=== PATIENT | male | born 1940 | race Caucasian/White ===

== ENCOUNTER 2016-10-30 14:24 | Inpatient (IN) | payer MEDICARE, MEDICAID ==
--- NOTE | 2016-10-30 14:51 | ED Physician Chart ---
Chief Complaint/HPI - Patient Information Date Seen:: 10/30/16 Time Seen:: 14:41 Chief Complaint:: lethargy and htn History of Present Illness:: pt was sent from [place] for "lethargy" and htn. bp was 180/? ...was given clonidine ? how much prior to sent to ed. low saO2 noted in ed. pt says he has had a dry cough. thinks he had fever. pt is not a good/reliable historian although he rambles on constantly about vareous topics. limited data came over w this pt...we are trying to learn more. pt seems cogent here per staff. no known recent injury or acute illness. Historian:: Patient, EMS Review:: Transfer documents Reviewed Review of Systems - Review of Systems General/Constitutional: No fever, No chills, No weight loss, No weakness, No diaphoresis, No edema, No loss of appetite Skin: No skin lesions, No rash, No bruising Head: No headache, No light-headedness Eyes: No loss of vision, No pain, No diplopia ENT: No earache, No nasal drainage, No sore throat, No tinnitus Neck: No neck pain, No swelling, No thyromegaly, No stiffness, No mass noted Cardio Vascular: No chest pain, No palpitations, No PND, No orthopnea, No edema Pulmonary: SOB, No cough, No sputum, No wheezing GI: No nausea, No vomiting, No diarrhea, No pain, No melena, No hematochezia, No constipation, No hematemesis G/U: No dysuria, No frequency, No hematuria Musculoskeletal: No bone or joint pain, No back pain, No muscle pain Endocrine: No polyuria, No polydipsia Psychiatric: Prior psych history, No depression, No anxiety, No suicidal ideation Hematopoietic: No bruising, No lymphadenopathy Allergic/Immuno: No urticaria, No angioedema Neurological: No syncope, No focal symptoms, No weakness, No paresthesia, No headache, No seizure, No dizziness, Confusion, No vertigo Past Medical History - Past Medical History Past Medical History: HTN, DM, Other (polycystic kidneys) Social History: Care Facility Medication: Reviewed Physical Exam - Physical Examination General/Constitutional: Awake, Well-developed, well-nourished, Alert, No distress, GCS 15, Non-toxic appearing, Ambulatory Other Gen/Cons comments:: pt is not a good/reliable historian although he rambles on constantly about vareous topics. alert. protuberant abdomen//nontndr. lungs fairly clear but sao2 low pt speaks wo pressured speech. mild global edema. legs mild swelling not red. not tender. no madai sx Head: Atraumatic Eyes: Lids, conjuctiva normal, PERRL, EOMI Skin: Nl inspection, No rash, No skin lesions, No ecchymosis, Well hydrated, No lymphadenopathy ENMT: External ears, nose nl, Nasal exam nl, Lips, teeth, gums nl Neck: Nontender, Full ROM w/o pain, No JVD, No nuchal rigidity, No bruit, No mass, No stridor Respiratory: Nl effort/Exclusion, Clear to Auscultation, No Wheeze/Rhonchi/Rales Cardio Vascular: RRR, No murmur, gallop, rubs, NL S1 S2 GI: No tenderness/rebounding/guarding, No organomegaly, No hernia, Normal BS's, Nondistended, No mass/bruits, No McBurney tenderness : No CVA tenderness Extremities: No tenderness or effusion, Full ROM, normal strength in all extremities, No edema, Normal digits & nails Neuro/Psych: Alert/oriented, DTR's symmetric, Normal sensory exam, Normal motor strength, Judgement/insight normal, Mood normal, Normal gait, No focal deficits Misc: normal gait, Normal back, No paraspinal tenderness Labs/Radiology/EKG Results - Lab Results Results: Laboratory Tests 10/30/16 10/30/16 10/30/16 15:00 15:17 15:17 WBC 17.1 H RBC 5.15 Hgb 15.5 Hct 46.9 MCV 91.0 MCH 30.1 MCHC Differential 33.0 RDW 12.1 Plt Count 240 MPV 10.6 Neutrophils % 80.3 H Lymphocytes % 9.5 L Monocytes % 9.3 Eosinophils % 0.8 Basophils % 0.1 D-Dimer Sodium 132 L Potassium 4.0 Chloride 102 Carbon Dioxide 28.5 Anion Gap 5.5 L BUN 19 Creatinine 0.9 Est GFR ( Amer) TNP Est GFR (Non-Af Amer) TNP BUN/Creatinine Ratio 21.1 Glucose 278 H Calcium 9.0 Total Bilirubin 0.5 AST 12 L ALT 10 Alkaline Phosphatase 63 Troponin I Total Protein 7.1 Albumin 3.9 L Globulin 3.2 Albumin/Globulin Ratio 1.2 Urine Source CLEAN C Urine Color YELLOW Urine Clarity CLEAR Urine pH 6.5 Ur Specific [place] 1.025 Urine Protein >300 H Urine Glucose (UA) 500 H Urine Ketones NEGATIVE Urine Blood NEGATIVE Urine Nitrate NEGATIVE Urine Bilirubin NEGATIVE Urine Urobilinogen 0.2 Ur Leukocyte Esterase NEGATIVE Urine RBC NONE SEEN Urine WBC NONE SEEN Ur Epithelial Cells NONE SEEN Urine Bacteria NONE SEEN 10/30/16 10/30/16 15:17 15:17 WBC RBC Hgb Hct MCV MCH MCHC Differential RDW Plt Count MPV Neutrophils % Lymphocytes % Monocytes % Eosinophils % Basophils % D-Dimer 960 H Sodium Potassium Chloride Carbon Dioxide Anion Gap BUN Creatinine Est GFR ( Amer) Est GFR (Non-Af Amer) BUN/Creatinine Ratio Glucose Calcium Total Bilirubin AST ALT Alkaline Phosphatase Troponin I 0.01 Total Protein Albumin Globulin Albumin/Globulin Ratio Urine Source Urine Color Urine Clarity Urine pH Ur Specific [place] Urine Protein Urine Glucose (UA) Urine Ketones Urine Blood Urine Nitrate Urine Bilirubin Urine Urobilinogen Ur Leukocyte Esterase Urine RBC Urine WBC Ur Epithelial Cells Urine Bacteria - Radiology Results Results: cxr bibasilar inc markings atelectasis vs deveoping infiltrates... - EKG Interpretations EKG Time:: 15:20 Rhythm: nsr [place]: -88 Rate: 108 ED Septic Shock - . Is Septic Shock (SBP<90, OR Lactate>4 mmol\\L) present?: No Reassessment (Disposition) - Reassessment Reassessment:: case dw Dr Pitt...will admit .. - Diagnosis Diagnosis:: 1 pneumonia 2 htn 3 elevated d-dimer 4 mild chf exacerbation - Patient Disposition Admitted to:: Telemetry Condition at Disposition:: Improved
[2016-10-30] MEDS ORDERED: Albuterol/Ipratropium Neb 3 ML AERS HHN ONE ×2 (15:02→15:06)
[2016-10-30 15:40] LABS: ALB/GLOB RATIO 1.2 (1.0-1.8); ALKALINE PHOSPHATASE 63 U/L (34-104); ANION GAP 5.5 (7.0-16.0); BILIRUBIN,TOTAL 0.5 mg/dL (0.3-1.0); BUN - UREA NITROGEN 19 mg/dL (7-25); BUN/CREATININE RATIO 21.1; CARBON DIOXIDE 28.5 mEq/L (21.0-31.0); CHLORIDE 102 mEq/L (98-107); CREATININE - SERUM 0.9 mg/dL (0.7-1.3); GLUCOSE 278 mg/dL (70-105); SGOT 12 U/L (13-39); SGPT/ALT 10 U/L (7-52); SODIUM SERUM 132 mEq/L (136-145)
[2016-10-30 15:44] LABS: % BASOPHILS 0.1 % (0.0-2.0); % EOSINOPHILS 0.8 % (0.0-5.0); % LYMPHOCYTES 9.5 % (20.0-50.0); % MONOCYTES 9.3 % (2.0-10.0); % NEUTROPHILS 80.3 % (40.0-80.0); HEMATOCRIT 46.9 % (39.0-49.0); HEMOGLOBIN 15.5 gm/dL (12.6-17.4); MEAN CORPUSCULAR HEMOGLOBIN 30.1 pg (27.0-31.0); MEAN PLATELET VOLUME 10.6 fl; NEUTROPHILE ABSOLUTE 13.8 Th/cmm (1.8-8.0); PLATELET COUNT 240 Th/cmm (150-400); RED BLOOD COUNT 5.15 Mil/cmm (3.80-5.80); RED CELL DISTRIBUTION WIDTH 12.1 % (11.5-20.0); WHITE BLOOD COUNT 17.1 Th/cmm (4.8-10.8)
[2016-10-30 15:46] LABS: URINE BILIRUBIN NEGATIVE (NEGATIVE); URINE BLOOD NEGATIVE (NEGATIVE); URINE COLOR YELLOW; URINE GLUCOSE (UA) 500 mg/dL (NEGATIVE); URINE KETONE NEGATIVE (NEGATIVE); URINE PH 6.5; URINE PROTEIN >300 mg/dL (NEGATIVE); URINE UROBILINOGEN 0.2 E.U./dL (0.2 - 1.0)
[2016-10-30 15:48] LABS: URINE BACTERIA NONE SEEN /hpf (NONE SEEN); URINE EPITHELIAL CELLS NONE SEEN /lpf (FEW); URINE RBC NONE SEEN /hpf (0-5); URINE WBC NONE SEEN /hpf (0-5)
--- NOTE | 2016-10-30 16:03 | Diagnostic Imaging Report ---
CHEST X-RAY: AP view INDICATION: Shortness of breath COMPARISON: None FINDINGS: Low lung volumes are seen with increased bibasilar lung markings. There may be a small left effusion. Heart size normal. Atherosclerosis is noted. An azygos fissure is noted. Degenerative changes of the spine are noted. IMPRESSION: Low lung volumes with increased bibasilar lung markings which may due to atelectasis versus less likely developing infiltrates. Atherosclerotic vascular disease.
[2016-10-30] MEDS ORDERED: Levofloxacin 500mg/100mL 500 MG/100 ML BAG IV ONE ×2 (16:22→16:54)
--- NOTE | 2016-10-30 18:54 | Admit Criteria Form ---
Admit Criteria Forms - Admit Criteria Diagnosis: PNEUMONIA, COMMUNITY ACQUIRED Clinical Indications for Admission to Inpatient Care ( Place 'X' for any and all applicable criteria): Admission is indicated for ANY ONE of the following (1)(2)(3): [ ]I. Hypoxemia indicated by ANY ONE of the following: [ ]a) Oxygen saturation less than 90% while breathing room air [ ]b) PO2 less than 60 mm Hg (8.0 kPa) while breathing room air [ ]c) Chronic lung disease with significant deterioration from baseline oxygenation [ ]II. Appropriate diagnostic testing and treatment unavailable in outpatient or recovery facility (eg,testing or infection control measures unavailable(10) [X]III. Moderate-risk or high-risk category patients (Pneumonia Severity Index (PSI) class IV or V, or CURB-65 score of 3 or greater). [ ]IV. Outpatient treatment failure as indicated by ANY ONE of the following(9) : [ ]a) Failure to respond to antibiotic (eg, resistant organism) [ ]b) Clinically significant adverse effects from medication (eg, vomiting) [ ]c) Complications of pneumonia (eg, empyema, bacteremia) [ ]d) Significant worsening of comorbid cond necessitating inpatient care (eg, chronic heart failure) [ ]V. Intermediate-risk category patients (eg, PSI class III or CURB-65 score 2) who do not improve with initial therapy and observation. [ ]. Immunocompromised patients (eg, AIDS, chronic steroid use) at moderate or high risk based on clinical evaluation. [ ]VII. Complicated pleural effusions (eg, exudative, loculated) [ ]VIII.Hemodynamic instability [X] IX. Altered mental status that is severe or persistent. [ ]X. Dehydration that is severe or persistent. [ ]XI. Bacteremia [ ]XII. Respiratory finding (eg. tachypnea) that do not respond to outpatient or observation care treatment Extended stay beyond goal length of stay may be needed for (20) [ ]a) Unclear diagnosis [ ]b) Pleural disease [ ]c) Severe pneumonia or treatment failure (25 [ ]d) Respiratory failure (anticipate invasive or noninvasive ventilatory support) [ ]e) Abnormal serum electrolytes (serum Na concentration less than 135 mEq/L (mmol/L) (32)(33) [ ]f) Clinically significant comorbid illness (eg, heart failure, atrial fibrillation with rapid heart rate, alcohol withdrawal, renal insufficiency)(34)(35) [ ]g) Comorbid acute exacerbation of COPD(36) [ ]h) Concomitant diagnosis of malignancy that may be associated with malnutrition, immunologic impairment, or bronchial obstruction. [ ]i) Concomitant altered mental status [ ]j) Culture-identified Gram-negative or antibiotic-resistant organism (eg, Pseudomonas, methicillin-resistant Staphylococcus aureus)(30) [ ]k) Healthcare-associated pneumonia The original [facility] [employer] content created by [employer] has been revised. The portions of the content which have been revised are identified through the use of italic text or in bold, and [facility] has neither reviewed nor approved the modified material. All other unmodified content is copyright [facility] [facility]. Please see references footnoted in the original [facility] [employer] edition 2016 Admit Criteria Met?: Yes
[2016-10-30] MEDS ORDERED: HALOPERIDOL DECANOATE 25 MG IM SCH (22:47)
[2016-10-30] MEDS ORDERED: PROSTAT SUGAR FREE PO SCH (22:47)
[2016-10-30] MEDS ORDERED: IOHEXOL 350mg/mL 100mL Bottle IVP ONE (22:57)
[2016-10-30] MEDS ORDERED: Dextrose 50% 50 mL Abboject IVP PRN (23:13)
[2016-10-30] MEDS ORDERED: GLUCAGON HCl 1 MG KIT IM PRN (23:15)
[2016-10-30] MEDS: Albuterol/Ipratropium Neb 3 ML AERS HHN SCH (23:51)
[2016-10-30] MEDS: Insulin Detemir 100 units/mL 10mL Vial SUBQ SCH (23:51)
[2016-10-30] MEDS: INSULIN ASPART, RECOMBINANT 100 UNITS/ML SUBQ SCH ×2 (23:53→23:54)
[2016-10-30] MEDS: Azithromycin 500 MG in Sodium Chloride 0.9% 250 ML IV SCH (23:56)
[2016-10-31] MEDS ORDERED: cefTRIAXone 1 GM in Sodium Chloride 0.9% 50 ML IV SCH
[2016-10-31] MEDS: INSULIN ASPART, RECOMBINANT 100 UNITS/ML SUBQ SCH ×5 (06:39→22:29)
[2016-10-31] MEDS ORDERED: INSULIN HUMAN REGULAR 100 UNITS/ML UNIT SUBQ SCH (07:30)
[2016-10-31 07:32] LABS: HEMATOCRIT 46.5 % (39.0-49.0); HEMOGLOBIN 15.3 gm/dL (12.6-17.4); MEAN CELL VOLUME 89.9 fl (80-99); MEAN CORPUSCULAR HEMOGLOBIN 29.6 pg (27.0-31.0); MEAN PLATELET VOLUME 11.4 fl; PLATELET COUNT 250 Th/cmm (150-400); RED BLOOD COUNT 5.17 Mil/cmm (3.80-5.80); RED CELL DISTRIBUTION WIDTH 12.3 % (11.5-20.0)
[2016-10-31] MEDS: Albuterol/Ipratropium Neb 3 ML AERS HHN SCH ×4 (07:42→19:40)
[2016-10-31 07:49] LABS: WHITE BLOOD COUNT 24.5 Th/cmm (4.8-10.8)
[2016-10-31 08:00] LABS: ALB/GLOB RATIO 1.2 (1.0-1.8); ALKALINE PHOSPHATASE 62 U/L (34-104); ANION GAP 11.7 (7.0-16.0); BILIRUBIN,TOTAL 0.5 mg/dL (0.3-1.0); BUN - UREA NITROGEN 17 mg/dL (7-25); CALCIUM SERUM 8.9 mg/dL (8.6-10.3); CARBON DIOXIDE 30.3 mEq/L (21.0-31.0); CHLORIDE 101 mEq/L (98-107); CHOLESTEROL 127 mg/dL (<200); GLUCOSE 185 mg/dL (70-105); MAGNESIUM 2.1 mg/dL (1.9-2.7); SGOT 12 U/L (13-39); SGPT/ALT 9 U/L (7-52); SODIUM SERUM 139 mEq/L (136-145); TRIGLYCERIDES 85 mg/dL (<150)
[2016-10-31 08:13] LABS: BAND NEUTROPHILE 4 % (0-10); NEUTROPHILS 85 % (40-80); PLATELET ESTIMATE ADEQUATE (NORMAL); PLATELET MORPHOLOGY NORMAL (NORMAL); TOTAL CELLS COUNTED 100
[2016-10-31] MEDS ORDERED: Benztropine 1 mg/mL 2 mL Vial IM SCH (09:00)
[2016-10-31] MEDS ORDERED: VTE Chemical Prophylaxis Screen/Admission MC PRN (09:45)
--- NOTE | 2016-10-31 12:23 | History & Physical ---
CHIEF COMPLAINT: Lethargy, weakness, short of breath. HISTORY OF PRESENT ILLNESS: This is a 76-year-old gentleman who was transferred from [facility] with a few day history of lethargy and weakness. The patient is somewhat of a poor historian and not able to answer fully. He has a history of type 2 diabetes, hypertension, history of polycystic kidney disease, cardiac arrhythmia, history of CHF, dementia and schizophrenia as well as bipolar disorder. He also reports dry cough and also admits to tactile fever and chills. At the ER, his pertinent findings included elevated BP and leukocytosis of 17.1, D-dimer of 960. The patient has been admitted to telemetry for further management and care. PAST MEDICAL HISTORY: As noted above. PAST SURGICAL HISTORY: Denies. FAMILY HISTORY: Likely noncontributory. SOCIAL HISTORY: He lives at [facility]. He denies any tobacco, ETOH. He is under a conservator. ALLERGIES: NKDA. OUTPATIENT MEDICATIONS: Cogentin 1 mg b.i.d., Aricept 5 mg at bedtime, Colace 250 every day, Coreg 6.25 b.i.d. and Zyprexa 5 mg every day, Levemir 26 units at bedtime, NovoLog 5 units t.i.d. with meals. REVIEW OF SYSTEMS: CONSTITUTIONAL: As mentioned in the HPI, weak, tired, tactile fever, chills. CARDIOVASCULAR: No chest pain. No angina type symptomatology. PULMONARY: Shortness of breath noted with cough, mostly dry. GASTROINTESTINAL: No bowel habit changes. GENITOURINARY: No bladder habit changes. NEUROLOGIC: Denies any changes in vision or any headaches. PHYSICAL EXAMINATION: VITAL SIGNS: Temperature 98.0, pulse 97, respirations 18-20, BP 144/81, satting 92% on room air. GENERAL: Well-developed obese gentleman, not in acute distress, sitting up in a chair, speaking 2-3 words sentences. HEAD AND NECK: Normocephalic, atraumatic. CARDIAC: Regular rate with distant sounds. LUNGS: Decreased at the bases with no audible rhonchi or wheezing noted at this time. ABDOMEN: Soft, supple, nontender, nondistended, normoactive bowel sounds. EXTREMITIES: On lower extremity, there is no pedal edema. LABORATORY DATA: White count 24.5, H and H 15/46 with a platelet count of 250, 85% of lymphocytes. Chemistry shows glucose 185, otherwise within normal limits. LFTs also generally within normal limits. UA shows positive for glucose and ketones, negative for leukocytes or nitrite. DIAGNOSTICS: Chest x-ray shows low lung volumes with increased left basilar lung markings, which may be due to atelectasis versus developing infiltrates. There is also criteria for atherosclerotic vascular disease. EKG shows sinus tachycardia at a rate of 108. There are Q-waves in the inferior leads. IMPRESSION: 1. Bibasilar atelectasis versus pneumonia. 2. Leukocytosis. 3. Elevated D-dimer-r/o dvt/pe. 4. History of congestive heart failure. 5. Essential hypertension. 6. History of diabetes. 7. History of cardiac arrhythmias-unknown. 8. History of psych disorder, currently stable. PLAN: The patient has been admitted to [facility] for further management and care. The patient has been placed on IV antibiotics and pulmonary supportive care. He will be pancultured including sputum C and S and will be monitored with followup x-rays. A Pulmonary consult has also been asked for further management and care. Given his elevated D-dimer, a CT angiogram was ordered but the patient is currently refusing the study. A venous US is pending and a V/Q scan will be asked for. A 2D echo will also be done given his history of CAD and CHF and his BNP, which is normal and will be also monitored. He will be kept on his other medications as scheduled. JOB# [id number] CASEY
[2016-10-31] MEDS: Cefepime 2 GM in Sodium Chloride 0.9% 100 ML IV SCH ×2 (13:06→22:27)
[2016-10-31] MEDS: Budesonide 0.5 Mg/2 mL Ud HHN SCH (19:40)
[2016-10-31] MEDS: Insulin Detemir 100 units/mL 10mL Vial SUBQ SCH (22:28)
[2016-11-01] MEDS: Azithromycin 500 MG in Sodium Chloride 0.9% 250 ML IV SCH (01:43)
[2016-11-01] MEDS: INSULIN ASPART, RECOMBINANT 100 UNITS/ML SUBQ SCH ×3 (06:58→17:35)
[2016-11-01] MEDS: Albuterol/Ipratropium Neb 3 ML AERS HHN SCH ×4 (07:35→19:24)
[2016-11-01] MEDS: Budesonide 0.5 Mg/2 mL Ud HHN SCH ×2 (07:36→19:24)
--- NOTE | 2016-11-01 07:46 | Consultation ---
The patient of Dr. Pitt. Thank you very much, Dr. Pitt for this consultation. HISTORY OF PRESENT ILLNESS: This is a 76-year-old male who presented from nursing facility for cough, congestion, shortness of breath. The patient was telling me that someone was coughing at his face at the longterm and that is how he got sick and appears to be doing a little bit better, continues to have some cough and congestion. PAST MEDICAL HISTORY: Diabetes, hypertension, polycystic kidney disease, schizophrenia, bipolar, and dementia. SOCIAL HISTORY: This patient smoked, but quit many years ago, over 4 years ago. PHYSICAL EXAMINATION: GENERAL: Awake, alert, not in acute distress. VITAL SIGNS: His temperature is 98.0, pulse is 97, respirations 20, blood pressure 130/84, saturation 95%. HEENT: Atraumatic, normocephalic. Pupils reactive to light and accommodation. Ears, nose, throat normal. NECK: Supple. CHEST: There are decreased breath sounds bilaterally and decreased bilateral rhonchi. Minimum wheezing. HEART: Regular. ABDOMEN: Soft. EXTREMITIES: No edema. LABORATORY DATA: WBC is 24.5, hemoglobin 15.3. Sodium is 139, potassium 4.0, BUN 17, creatinine 1.0. Chest x-ray, bibasilar infiltrates with atelectasis. IMPRESSION: This is a 76-year-old male with: 1. Respiratory failure, hypoxemia. 2. Pneumonia. 3. Underlying airway disease with bronchospasm. PLAN: 1. IV antibiotics. 2. Nebulizer. 3. Add Pulmicort. 4. Follow up chest x-ray. Less likely pulmonary embolism, but will follow up on the V/Q scan as well. JOB# [id number]
--- NOTE | 2016-11-01 10:37 | Diagnostic Imaging Report ---
Nuclear medicine VQ scan HISTORY: Shortness of breath, rule out pulmonary embolus COMPARISON: Chest x-ray on 10/30/2016 Technique/procedure: For the ventilation portion of examination 40.1 mCi of technetium labeled DTPA was administered via aerosol and multiple scintigraphic images of the lungs were obtained. Note patient refused the rest of the procedure and perfusion images were not able to be obtained. IMPRESSION: Nondiagnostic exam as patient refused the perfusion portion of the procedure. When clinically feasible, repeat exam may be obtained.
[2016-11-01] MEDS: Cefepime 2 GM in Sodium Chloride 0.9% 100 ML IV SCH ×2 (12:00→23:00)
[2016-11-01 15:06] LABS: % BASOPHILS 0.9 % (0.0-2.0); % EOSINOPHILS 0.6 % (0.0-5.0); % LYMPHOCYTES 11.5 % (20.0-50.0); % MONOCYTES 6.6 % (2.0-10.0); % NEUTROPHILS 80.4 % (40.0-80.0); HEMATOCRIT 42.4 % (39.0-49.0); HEMOGLOBIN 14.3 gm/dL (12.6-17.4); MEAN CELL VOLUME 89.8 fl (80-99); MEAN CORPUSCULAR HEMOGLOBIN 30.3 pg (27.0-31.0); MEAN CORPUSCULAR HGB CONC 33.7 pg (28.0-36.0); MEAN PLATELET VOLUME 11.7 fl; NEUTROPHILE ABSOLUTE 10.9 Th/cmm (1.8-8.0); PLATELET COUNT 236 Th/cmm (150-400); RED BLOOD COUNT 4.72 Mil/cmm (3.80-5.80); RED CELL DISTRIBUTION WIDTH 12.5 % (11.5-20.0)
[2016-11-01 15:07] LABS: WHITE BLOOD COUNT 13.6 Th/cmm (4.8-10.8)
[2016-11-01 15:11] LABS: ANION GAP 5.2 (7.0-16.0); BUN - UREA NITROGEN 22 mg/dL (7-25); CALCIUM SERUM 8.5 mg/dL (8.6-10.3); CARBON DIOXIDE 33.9 mEq/L (21.0-31.0); CHLORIDE 101 mEq/L (98-107); GLUCOSE 262 mg/dL (70-105); POTASSIUM SERUM 4.1 mEq/L (3.5-5.1); SODIUM SERUM 136 mEq/L (136-145)
--- NOTE | 2016-11-01 16:58 | Cardiology ---
Patient of Dr. Pitt. M-MODE ECHOCARDIOGRAM: Mitral valve, anterior leaflet of the mitral valve shows normal excursion, EF velocity. Posterior mitral valve shows normal excursion. Left ventricle posterior wall shows increased thickness, normal excursion. Interventricular septum shows increased thickness, normal excursion, hypertrophy of the left ventricle, ejection fraction 60%. Left atrium normal. Aortic root shows normal dimension, normal excursion of aortic leaflets. CONCLUSION: Hypertrophy of the left ventricle, ejection fraction 60%. 2D ECHO: Long axis view showed normal sized left ventricle with hypertrophy of the left ventricle. Left atrium normal. Aortic root shows normal dimension, normal excursion of aortic leaflets. Short axis view of mitral valve normal. Short axis view of aortic valve normal. Apical four chamber view showed normal sized left ventricle with hypertrophy of the left ventricle. Left atrium normal. Right ventricular cavity, right atrium normal, no pericardial effusion. CONCLUSION: Hypertrophy of the left ventricle, ejection fraction 55%. Doppler study showed mild mitral regurgitation, tricuspid regurgitation, aortic regurgitation, prominent A wave consistent with full compliance of left ventricle. [facility]# [id number]
[2016-11-01 21:04] LABS: ABG SOURCE ARTERIAL; ALLEN TEST Positive; BE(B) 9.6 mmol/L (-3.0-3.0); FIO2 50; HCO3 39.5 mmol/L (20.0-26.0)
[2016-11-01 21:05] LABS: CRITICAL VALUES REPORTED BY SN
[2016-11-01 21:06] LABS: pH 7.28 (7.35-7.45)
[2016-11-01] MEDS ORDERED: Sodium Chloride 0.9% 1,000 ML IV ONE (22:11)
--- NOTE | 2016-11-01 22:15 | ED Physician Chart ---
Chief Complaint/HPI - Patient Information Date Seen:: 11/01/16 Time Seen:: 22:08 Chief Complaint:: respiratory failure History of Present Illness:: 76-year-old male with acute, severe, respiratory failure that started about 10 minutes prior to my arrival. Has associated hypercapnia. History limited as patient is unconscious and does not speak History provided by respiratory therapy and nursing staff Allergies:: Allergies Allergy/AdvReac Type Severity Reaction Status Date / Time No Known Allergies Allergy Verified 10/30/16 15:07 Historian:: Other (nursing staff and respiratory therapy) Review:: Nurse's Note Reviewed Review of Systems - Review of Systems Other: Complete system review otherwise unremarkable except as noted in HPI. Past Medical History - Past Medical History Obtainable: Yes (clinical condition of patient, unconscious and in respiratory failure) Family Medical History - Family Member Maternal History Unknown: Yes Physical Exam - Physical Examination Other:: INITIAL VITAL SIGNS: Reviewed by me GENERAL: Patient is lying in ICU bed, diaphoretic HEAD: Head is normocephalic. No evidence of trauma. No scalp or facial swelling EYES: No scleral icterus bilaterally ENT: Oropharynx is clear of exudate and erythema NECK: Supple. No meningismus. No masses. No evidence of trauma. No cervical spine bony step-offs or crepitus to palpation RESPIRATORY: Tachypneic with accessory muscle use, coarse breath sounds bilaterally CV: Tachycardic No murmurs, rubs, or gallops ABDOMEN: Soft, non-distended. No masses BACK: No ecchymoses. No evidence of trauma EXTREMITIES: Normal to inspection and palpation. No deformity SKIN: Warm and dry. No obvious rash. No jaundice NEUROLOGIC: Face is symmetric. Withdraws to pain in all extremities Labs/Radiology/EKG Results - Lab Results Results: Laboratory Tests 10/30/16 10/30/16 10/30/16 15:00 15:00 15:17 WBC 17.1 H RBC 5.15 Hgb 15.5 Hct 46.9 MCV 91.0 MCH 30.1 MCHC Differential 33.0 RDW 12.1 Plt Count 240 MPV 10.6 Neutrophils % 80.3 H Lymphocytes % 9.5 L Monocytes % 9.3 Eosinophils % 0.8 Basophils % 0.1 D-Dimer Sodium Potassium Chloride Carbon Dioxide Anion Gap BUN Creatinine Est GFR ( Amer) Est GFR (Non-Af Amer) BUN/Creatinine Ratio Glucose POC Glucose 263 H Hemoglobin A1c % Whole Bld Lactic Acid Calcium Total Bilirubin AST ALT Alkaline Phosphatase Troponin I B-Natriuretic Peptide Total Protein Albumin Globulin Albumin/Globulin Ratio Urine Source CLEAN C Urine Color YELLOW Urine Clarity CLEAR Urine pH 6.5 Ur Specific [place] 1.025 Urine Protein >300 H Urine Glucose (UA) 500 H Urine Ketones NEGATIVE Urine Blood NEGATIVE Urine Nitrate NEGATIVE Urine Bilirubin NEGATIVE Urine Urobilinogen 0.2 Ur Leukocyte Esterase NEGATIVE Urine RBC NONE SEEN Urine WBC NONE SEEN Ur Epithelial Cells NONE SEEN Urine Bacteria NONE SEEN 10/30/16 10/30/16 10/30/16 15:17 15:17 15:17 WBC RBC Hgb Hct MCV MCH MCHC Differential RDW Plt Count MPV Neutrophils % Lymphocytes % Monocytes % Eosinophils % Basophils % D-Dimer 960 H Sodium 132 L Potassium 4.0 Chloride 102 Carbon Dioxide 28.5 Anion Gap 5.5 L BUN 19 Creatinine 0.9 Est GFR ( Amer) TNP Est GFR (Non-Af Amer) TNP BUN/Creatinine Ratio 21.1 Glucose 278 H POC Glucose Hemoglobin A1c % Whole Bld Lactic Acid Calcium 9.0 Total Bilirubin 0.5 AST 12 L ALT 10 Alkaline Phosphatase 63 Troponin I 0.01 B-Natriuretic Peptide Total Protein 7.1 Albumin 3.9 L Globulin 3.2 Albumin/Globulin Ratio 1.2 Urine Source Urine Color Urine Clarity Urine pH Ur Specific [place] Urine Protein Urine Glucose (UA) Urine Ketones Urine Blood Urine Nitrate Urine Bilirubin Urine Urobilinogen Ur Leukocyte Esterase Urine RBC Urine WBC Ur Epithelial Cells Urine Bacteria 10/30/16 10/30/16 10/30/16 15:17 15:17 15:17 WBC RBC Hgb Hct MCV MCH MCHC Differential RDW Plt Count MPV Neutrophils % Lymphocytes % Monocytes % Eosinophils % Basophils % D-Dimer Sodium Potassium Chloride Carbon Dioxide Anion Gap BUN Creatinine Est GFR ( Amer) Est GFR (Non-Af Amer) BUN/Creatinine Ratio Glucose POC Glucose Hemoglobin A1c % 8.6 H Whole Bld Lactic Acid 0.83 Calcium Total Bilirubin AST ALT Alkaline Phosphatase Troponin I B-Natriuretic Peptide 37.1 Total Protein Albumin Globulin Albumin/Globulin Ratio Urine Source Urine Color Urine Clarity Urine pH Ur Specific [place] Urine Protein Urine Glucose (UA) Urine Ketones Urine Blood Urine Nitrate Urine Bilirubin Urine Urobilinogen Ur Leukocyte Esterase Urine RBC Urine WBC Ur Epithelial Cells Urine Bacteria Assessment - Assessment General Assessment: Intubation Endotracheal Intubation by me, Dr. Radha Salazar M.D.: Pre assessment performed. See preceding note for details. Pre-oxygenation performed with 100% oxygen RSI: Performed w/o complication or hypoxic events. Medications as ordered. Blade: MAC 4 ET Tube: 8 cm Depth: 22 cm at the lip Compl: No hypoxic events or bradycardia Intubation confirmed by colorimetric CO2, equal breath sounds, quiet over the stomach. Chest X-ray 1V Interpreted by me: 2 cm above the meredith ET tube. Normal soft tissue, No pneumothorax. ED Septic Shock - . Is Septic Shock (SBP<90, OR Lactate>4 mmol\L) present?: No Reassessment (Disposition) - Reassessment Reassessment:: Patient was intubated. In respiratory failure. Ordered propofol drip. Saline bolus. NG/OG-tube placement. ABG ordered 1 hour after intubation. Initial vent setting AC 24, [id number], peep 5. Nursing to inform Hospital physician. Reassessment Condition:: Unchanged, Improved - Diagnosis Diagnosis:: Respiratory failure - Aftercare/Follow up Instructions Aftercare/Follow-Up Instructions:: Counseled pt regarding lab results/diagnosis & need follow up, Refer to Discharge Instructions - Patient Disposition Discharge/Transfer:: Acute Care w/in this hosp Admitted to:: ICU Condition at Disposition:: Stable ED Discharge Plan - Patient Disposition Admit/Discharge/Transfer: Acute Care w/in this hosp Condition at Disposition: Stable
[2016-11-01 22:45] LABS: ABG SOURCE ARTERIAL; ALLEN TEST Positive; BE(B) 8.2 mmol/L (-3.0-3.0); HCO3 33.9 mmol/L (20.0-26.0); pH 7.43 (7.35-7.45)
[2016-11-01 22:46] LABS: CRITICAL VALUES REPORTED BY SN; FIO2 100; MECH RATE 24; MECH VT 650
[2016-11-02] MEDS ORDERED: Sodium Chloride 0.9% 1,000 ML IV ONE ×2 (00:10→00:16)
[2016-11-02] MEDS ORDERED: Norepinephrine 4 mg/4mL Vial IV ONE (00:46)
[2016-11-02] MEDS: Azithromycin 500 MG in Sodium Chloride 0.9% 250 ML IV SCH ×2 (01:38→23:40)
[2016-11-02] MEDS: INSULIN ASPART, RECOMBINANT 100 UNITS/ML SUBQ SCH ×5 (02:59→21:16)
[2016-11-02 05:06] LABS: % BASOPHILS 0.2 % (0.0-2.0); % EOSINOPHILS 0.3 % (0.0-5.0); % LYMPHOCYTES 18.6 % (20.0-50.0); % MONOCYTES 8.3 % (2.0-10.0); % NEUTROPHILS 72.6 % (40.0-80.0); HEMATOCRIT 43.8 % (39.0-49.0); HEMOGLOBIN 14.7 gm/dL (12.6-17.4); MEAN CELL VOLUME 89.3 fl (80-99); MEAN CORPUSCULAR HEMOGLOBIN 30.1 pg (27.0-31.0); MEAN CORPUSCULAR HGB CONC 33.7 pg (28.0-36.0); MEAN PLATELET VOLUME 12.6 fl; PLATELET COUNT 269 Th/cmm (150-400); RED CELL DISTRIBUTION WIDTH 12.4 % (11.5-20.0)
[2016-11-02 05:18] LABS: WHITE BLOOD COUNT 17.9 Th/cmm (4.8-10.8)
[2016-11-02 05:25] LABS: ANION GAP 10.5 (7.0-16.0); BUN - UREA NITROGEN 27 mg/dL (7-25); BUN/CREATININE RATIO 20.8; CALCIUM SERUM 8.7 mg/dL (8.6-10.3); CARBON DIOXIDE 29.5 mEq/L (21.0-31.0); CHLORIDE 101 mEq/L (98-107); CREATININE - SERUM 1.3 mg/dL (0.7-1.3); GLUCOSE 262 mg/dL (70-105); SODIUM SERUM 137 mEq/L (136-145)
[2016-11-02] MEDS: Albuterol/Ipratropium Neb 3 ML AERS HHN SCH ×4 (07:24→19:13)
[2016-11-02] MEDS: Budesonide 0.5 Mg/2 mL Ud HHN SCH ×2 (07:24→19:13)
[2016-11-02] MEDS: Insulin Detemir 100 units/mL 10mL Vial SUBQ SCH ×2 (07:52→21:12)
[2016-11-02] MEDS ORDERED: Chlorhexidine Gluconate 0.12% 15mL Mouthwash MM SCH (08:00)
[2016-11-02] MEDS ORDERED: Probiotic Screen MC PRN (09:17)
[2016-11-02] MEDS: Cefepime 2 GM in Sodium Chloride 0.9% 100 ML IV SCH ×2 (10:24→22:11)
--- NOTE | 2016-11-02 10:24 | Diagnostic Imaging Report ---
Portable chest x-ray HISTORY: Pneumonia Compared to prior exam of November 01, 2016, the heart remains enlarged. There appears to be increased density in left lower hemithorax consistent with a pleural effusion. Underlying pneumonia or atelectasis cannot be excluded. An endotracheal tube tip is approximate 4.0 cm above the meredith. A nasogastric tube appears to extend below the diaphragm into the region of the stomach. IMPRESSION: 1. Density left lower hemithorax suggesting a small effusion. Underlying pneumonia and/or atelectasis cannot be excluded. 2. Endotracheal tube and nasogastric tube placements as noted above 3. Cardiomegaly
[2016-11-02 15:57] LABS: ABG SOURCE Arterial; ALLEN TEST PASS; BE(B) 12.2 mmol/L (-3.0-3.0); HCO3 34.2 mmol/L (20.0-26.0); pH 7.61 (7.35-7.45)
[2016-11-02 15:58] LABS: CRITICAL VALUES REPORTED BY PW; FIO2 80; MECH RATE 24; MECH VT 650
[2016-11-02 18:07] LABS: INR 1.12 (0.5-1.4); PROTHROMBIN TIME (TEST) 11.2 SECONDS (9.5-11.5)
[2016-11-02] MEDS: Chlorhexidine Gluconate 0.12% 15mL Mouthwash MM SCH (19:58)
[2016-11-02] MEDS ORDERED: Diltiazem 5 mg/mL 5mL Vial IVP ONE (23:30)
[2016-11-03] MEDS: Diltiazem 5 mg/mL 5mL Vial IVP PRN (02:23)
[2016-11-03 04:49] LABS: RED BLOOD COUNT 4.73 Mil/cmm (3.80-5.80)
[2016-11-03 05:15] LABS: % BASOPHILS 0.2 % (0.0-2.0); % EOSINOPHILS 1.2 % (0.0-5.0); % LYMPHOCYTES 15.6 % (20.0-50.0); % MONOCYTES 13.4 % (2.0-10.0); % NEUTROPHILS 69.6 % (40.0-80.0); HEMATOCRIT 42.3 % (39.0-49.0); MEAN CELL VOLUME 89.5 fl (80-99); MEAN CORPUSCULAR HEMOGLOBIN 29.5 pg (27.0-31.0); MEAN PLATELET VOLUME 11.7 fl; NEUTROPHILE ABSOLUTE 9.8 Th/cmm (1.8-8.0); PLATELET COUNT 220 Th/cmm (150-400); RED CELL DISTRIBUTION WIDTH 12.7 % (11.5-20.0)
[2016-11-03 05:26] LABS: ANION GAP 6.4 (7.0-16.0); BUN - UREA NITROGEN 30 mg/dL (7-25); CALCIUM SERUM 8.2 mg/dL (8.6-10.3); CHLORIDE 106 mEq/L (98-107); CREATININE - SERUM 1.5 mg/dL (0.7-1.3); GLUCOSE 247 mg/dL (70-105); POTASSIUM SERUM 3.4 mEq/L (3.5-5.1); SODIUM SERUM 140 mEq/L (136-145)
[2016-11-03 05:28] LABS: WHITE BLOOD COUNT 14.1 Th/cmm (4.8-10.8)
[2016-11-03] MEDS: INSULIN ASPART, RECOMBINANT 100 UNITS/ML SUBQ SCH ×4 (06:43→20:59)
[2016-11-03] MEDS: Budesonide 0.5 Mg/2 mL Ud HHN SCH ×2 (07:41→18:31)
[2016-11-03] MEDS: Albuterol/Ipratropium Neb 3 ML AERS HHN SCH ×4 (07:41→18:31)
[2016-11-03] MEDS: Lactobacillus Rhamnosus 10 Billion CFU Capsule PO SCH (08:13)
[2016-11-03] MEDS ORDERED: Potassium Chloride Elixir 20 mEq /15 mL UDC GT ONE (09:11)
[2016-11-03] MEDS: Chlorhexidine Gluconate 0.12% 15mL Mouthwash MM SCH ×2 (09:12→20:38)
[2016-11-03 09:37] LABS: ABG SOURCE Arterial; ALLEN TEST PASS; BE(B) 7.9 mmol/L (-3.0-3.0); HCO3 33.3 mmol/L (20.0-26.0); pH 7.44 (7.35-7.45)
[2016-11-03 09:38] LABS: CRITICAL VALUES REPORTED BY PW; FIO2 40; MECH RATE 14; MECH VT 550
--- NOTE | 2016-11-03 10:13 | Diagnostic Imaging Report ---
Portable chest x-ray HISTORY: Shortness of breath, endotracheal tube placement Compared with a prior exam of October 30, 2016, an endotracheal tube has been inserted. The tip is approximately 5.0 cm above the meredith. Somewhat linear density noted in the right lung base that may be associated with scarring or subsegmental atelectasis. Faint density also noted in the right perihilar region. Ammonia cannot be definitely excluded. IMPRESSION: 1. Endotracheal tube tip approximately 5.0 cm above the meredith 2. Stable linear density right lung base that may be associated with scarring or subsegmental atelectasis 3. Faint density in the right perihilar region. Pneumonia cannot be definitely excluded. Clinical correlation needed.
[2016-11-03] MEDS: Cefepime 2 GM in Sodium Chloride 0.9% 100 ML IV SCH ×2 (10:56→22:47)
[2016-11-03] MEDS ORDERED: Sodium Chloride 0.9% 1,000 ML IV SCH (15:45)
[2016-11-03] MEDS: Insulin Detemir 100 units/mL 10mL Vial SUBQ SCH (21:40)
--- NOTE | 2016-11-04 05:07 | Consultation ---
The patient of Dr. Pitt. HISTORY AND PHYSICAL: This 76-year-old male patient who was admitted to [facility] with lethargy and weakness. During hospital stay, the patient had respiratory failure. The patient is intubated and transferred to ICU. The patient also is hypotensive on Levophed. PAST MEDICAL HISTORY: Respiratory failure, COPD, diabetes, hypertension, polycystic kidney, congestive heart failure, dementia, schizophrenia, and bipolar. FAMILY HISTORY: Unremarkable. SOCIAL HISTORY: No history of smoking or alcohol abuse. ALLERGIES: No known allergies. PHYSICAL EXAMINATION: VITAL SIGNS: Blood pressure 100/70, on Levophed, pulse 100, and respirations, on ventilator. HEAD: Head is normocephalic. No lumps or bumps. EYES: Pupils are equal and reactive to light. Fundi show AV nicking, sclerae white, and conjunctivae pink. NECK: Carotid 2+. Normal upstroke. JVD 10 cm above the sternal angle. Thyroid not palpable. Lymph nodes not palpable. CHEST: Shows increased AP diameter. No kyphosis or scoliosis. LUNGS: Bilateral rales. Decreased breath sounds at both the bases. HEART: PMI fifth intercostal space with lateral to midclavicular line. S1, S2, S3, S4, systolic murmur, grade 2/6, lower left sternal border without radiation. ABDOMEN: Soft. Liver and spleen not palpable. No organomegaly. Bowel sounds active. NEUROLOGIC: Unremarkable. EXTREMITIES: Peripheral pulses 2+. No pedal edema. CLINICAL IMPRESSION: Acute respiratory failure, on ventilator, non-ST elevation myocardial infarction, congestive heart failure, diastolic dysfunction, hypertension, diabetes mellitus type 2, polycystic kidney, dementia, schizophrenia, and bipolar. PLAN: We will continue the patient on management of the ventilator. Continue the patient on Levophed. We will also get an echocardiogram to evaluate for left ventricular function. The patient has hypokalemia, will have potassium supplement and CKD stage II. JOB# [id number]
[2016-11-04 05:18] LABS: HEMOGLOBIN 14.8 gm/dL (12.6-17.4); MEAN CELL VOLUME 89.8 fl (80-99)
[2016-11-04 05:22] LABS: % EOSINOPHILS 2.5 % (0.0-5.0); % LYMPHOCYTES 9.6 % (20.0-50.0); % MONOCYTES 11.1 % (2.0-10.0); % NEUTROPHILS 76.8 % (40.0-80.0); HEMATOCRIT 43.4 % (39.0-49.0); MEAN CORPUSCULAR HEMOGLOBIN 30.6 pg (27.0-31.0); MEAN CORPUSCULAR HGB CONC 34.1 pg (28.0-36.0); MEAN PLATELET VOLUME 11.9 fl; NEUTROPHILE ABSOLUTE 9.9 Th/cmm (1.8-8.0); RED BLOOD COUNT 4.83 Mil/cmm (3.80-5.80); RED CELL DISTRIBUTION WIDTH 12.9 % (11.5-20.0); WHITE BLOOD COUNT 12.8 Th/cmm (4.8-10.8)
[2016-11-04 05:29] LABS: PLATELET COUNT 151 Th/cmm (150-400)
[2016-11-04 05:36] LABS: ALB/GLOB RATIO 0.9 (1.0-1.8); ALKALINE PHOSPHATASE 57 U/L (34-104); ANION GAP 5.6 (7.0-16.0); BILIRUBIN,TOTAL 0.4 mg/dL (0.3-1.0); BUN - UREA NITROGEN 21 mg/dL (7-25); BUN/CREATININE RATIO 19.1; CALCIUM SERUM 8.2 mg/dL (8.6-10.3); CARBON DIOXIDE 30.9 mEq/L (21.0-31.0); CHLORIDE 109 mEq/L (98-107); CREATININE - SERUM 1.1 mg/dL (0.7-1.3); GLUCOSE 132 mg/dL (70-105); MAGNESIUM 2.1 mg/dL (1.9-2.7); POTASSIUM SERUM 3.5 mEq/L (3.5-5.1); SGOT 14 U/L (13-39); SGPT/ALT 17 U/L (7-52); SODIUM SERUM 142 mEq/L (136-145)
[2016-11-04] MEDS: INSULIN ASPART, RECOMBINANT 100 UNITS/ML SUBQ SCH ×4 (07:11→21:15)
[2016-11-04] MEDS: Albuterol/Ipratropium Neb 3 ML AERS HHN SCH ×5 (07:45→23:01)
[2016-11-04] MEDS: Budesonide 0.5 Mg/2 mL Ud HHN SCH ×2 (07:45→19:24)
[2016-11-04] MEDS: Chlorhexidine Gluconate 0.12% 15mL Mouthwash MM SCH ×2 (08:23→20:30)
[2016-11-04] MEDS: Lactobacillus Rhamnosus 10 Billion CFU Capsule PO SCH (08:23)
--- NOTE | 2016-11-04 11:11 | Diagnostic Imaging Report ---
Portable chest x-ray HISTORY: Shortness of breath Compared with the prior exam of November 02, 2016, there is improved visualization of the left lower lobe with no definite focal pulmonary processes. An endotracheal tube tip is approximately 3.0 cm above the meredith. IMPRESSION: 1. Improved visualization of the left lower lobe with no definite focal processes.
--- NOTE | 2016-11-04 11:19 | Diagnostic Imaging Report ---
Portable chest x-ray HISTORY: Shortness of breath Compared with the prior exam of November 03, 2016, faint density seen in the right perihilar region. Pneumonia cannot be definitely excluded. Clinical correlation is needed. An endotracheal tube tip is approximately 2.5 cm above the meredith. IMPRESSION: 1. No change in pulmonary status. Faint density seen in the right perihilar region. Pneumonia cannot be excluded. Clinical correlation is needed.
--- NOTE | 2016-11-04 11:29 | Diagnostic Imaging Report ---
Portable chest x-ray HISTORY: Shortness of breath, vascular catheter placement Compared to prior exam performed earlier in the day (0851 hours), a right-sided vascular catheters been inserted. The tip is in the superior vena cava. The heart remains enlarged. There is questionable faint infiltrate in the right lower perihilar region. Pneumonia cannot be excluded. Clinical correlation and follow-up recommended. IMPRESSION: 1. New vascular catheter with tip in the region of the superior vena cava 2. Questionable faint infiltrate in the lower right perihilar region. Early pneumonia cannot be excluded. Clinical correlation is needed.
[2016-11-04] MEDS: D5-0.9%NS 1,000 ML IV SCH (13:36)
[2016-11-04] MEDS: Cefepime 2 GM in Sodium Chloride 0.9% 100 ML IV SCH ×2 (16:24→22:42)
[2016-11-04] MEDS: Morphine Sulfate 2 mg/mL 1mL Syr IVP PRN (16:36)
[2016-11-04] MEDS: Insulin Detemir 100 units/mL 10mL Vial SUBQ SCH (21:15)
[2016-11-04] MEDS: Azithromycin 500 MG in Sodium Chloride 0.9% 250 ML IV SCH ×2 (23:51)
[2016-11-05] MEDS: Diltiazem 5 mg/mL 5mL Vial IVP PRN (00:38)
[2016-11-05] MEDS: Morphine Sulfate 2 mg/mL 1mL Syr IVP PRN (03:17)
[2016-11-05 05:19] LABS: RED CELL DISTRIBUTION WIDTH 12.8 % (11.5-20.0)
[2016-11-05 05:31] LABS: % EOSINOPHILS 1.2 % (0.0-5.0); % LYMPHOCYTES 12.4 % (20.0-50.0); % MONOCYTES 10.4 % (2.0-10.0); MEAN CELL VOLUME 90.2 fl (80-99); MEAN CORPUSCULAR HEMOGLOBIN 30.1 pg (27.0-31.0); MEAN CORPUSCULAR HGB CONC 33.3 pg (28.0-36.0); MEAN PLATELET VOLUME 11.8 fl; NEUTROPHILE ABSOLUTE 8.6 Th/cmm (1.8-8.0); PLATELET COUNT 146 Th/cmm (150-400); WHITE BLOOD COUNT 11.6 Th/cmm (4.8-10.8)
[2016-11-05 05:32] LABS: HEMOGLOBIN 12.6 gm/dL (12.6-17.4)
[2016-11-05 05:33] LABS: HEMATOCRIT 37.9 % (39.0-49.0)
[2016-11-05 05:44] LABS: ANION GAP 5.2 (7.0-16.0); BUN - UREA NITROGEN 18 mg/dL (7-25); BUN/CREATININE RATIO 16.4; CALCIUM SERUM 7.8 mg/dL (8.6-10.3); CARBON DIOXIDE 28.4 mEq/L (21.0-31.0); CHLORIDE 112 mEq/L (98-107); CREATININE - SERUM 1.1 mg/dL (0.7-1.3); GLUCOSE 240 mg/dL (70-105); POTASSIUM SERUM 3.6 mEq/L (3.5-5.1); SODIUM SERUM 142 mEq/L (136-145)
[2016-11-05] MEDS: INSULIN ASPART, RECOMBINANT 100 UNITS/ML SUBQ SCH ×4 (06:56→21:51)
[2016-11-05] MEDS: D5-0.9%NS 1,000 ML IV SCH ×2 (06:59→19:43)
[2016-11-05] MEDS: Albuterol/Ipratropium Neb 3 ML AERS HHN SCH ×4 (07:57→19:09)
[2016-11-05] MEDS: Budesonide 0.5 Mg/2 mL Ud HHN SCH ×2 (07:57→19:09)
[2016-11-05 10:08] LABS: ABG SOURCE Arterial; ALLEN TEST Positive; BE(B) 6.6 mmol/L (-3.0-3.0); HCO3 31.3 mmol/L (20.0-26.0); pH 7.46 (7.35-7.45)
[2016-11-05 10:09] LABS: FIO2 40; MECH RATE 12; MECH VT 550
[2016-11-05] MEDS: Benztropine 1 MG TAB PO SCH (10:37)
[2016-11-05] MEDS: Lactobacillus Rhamnosus 10 Billion CFU Capsule PO SCH (10:37)
[2016-11-05] MEDS: Chlorhexidine Gluconate 0.12% 15mL Mouthwash MM SCH ×2 (10:37→21:50)
[2016-11-05] MEDS: Cefepime 2 GM in Sodium Chloride 0.9% 100 ML IV SCH ×2 (11:00→23:04)
[2016-11-05] MEDS: Insulin Detemir 100 units/mL 10mL Vial SUBQ SCH (21:53)
[2016-11-06] MEDS: Azithromycin 500 MG in Sodium Chloride 0.9% 250 ML IV SCH ×2 (00:21→23:58)
[2016-11-06 05:03] LABS: % BASOPHILS 0.5 % (0.0-2.0); % EOSINOPHILS 2.5 % (0.0-5.0); % LYMPHOCYTES 14.6 % (20.0-50.0); % NEUTROPHILS 70.4 % (40.0-80.0); HEMATOCRIT 35.3 % (39.0-49.0); HEMOGLOBIN 12.1 gm/dL (12.6-17.4); MEAN CELL VOLUME 89.7 fl (80-99); MEAN CORPUSCULAR HEMOGLOBIN 30.7 pg (27.0-31.0); MEAN CORPUSCULAR HGB CONC 34.3 pg (28.0-36.0); MEAN PLATELET VOLUME 11.4 fl; NEUTROPHILE ABSOLUTE 7.4 Th/cmm (1.8-8.0); PLATELET COUNT 164 Th/cmm (150-400); RED BLOOD COUNT 3.93 Mil/cmm (3.80-5.80); RED CELL DISTRIBUTION WIDTH 12.6 % (11.5-20.0); WHITE BLOOD COUNT 10.7 Th/cmm (4.8-10.8)
[2016-11-06 05:18] LABS: ANION GAP 4.2 (7.0-16.0); BUN - UREA NITROGEN 24 mg/dL (7-25); CALCIUM SERUM 8.1 mg/dL (8.6-10.3); CARBON DIOXIDE 30.3 mEq/L (21.0-31.0); CHLORIDE 113 mEq/L (98-107); GLUCOSE 197 mg/dL (70-105); MAGNESIUM 2.1 mg/dL (1.9-2.7); POTASSIUM SERUM 3.5 mEq/L (3.5-5.1); SODIUM SERUM 144 mEq/L (136-145)
[2016-11-06] MEDS: INSULIN ASPART, RECOMBINANT 100 UNITS/ML SUBQ SCH ×4 (06:35→21:12)
[2016-11-06] MEDS: Albuterol/Ipratropium Neb 3 ML AERS HHN SCH ×4 (07:19→19:28)
[2016-11-06] MEDS: Budesonide 0.5 Mg/2 mL Ud HHN SCH ×2 (07:19→19:28)
[2016-11-06] MEDS: Lactobacillus Rhamnosus 10 Billion CFU Capsule PO SCH (08:13)
[2016-11-06] MEDS: Benztropine 1 MG TAB PO SCH (08:13)
[2016-11-06] MEDS: Chlorhexidine Gluconate 0.12% 15mL Mouthwash MM SCH ×2 (08:40→20:54)
--- NOTE | 2016-11-06 09:19 | Diagnostic Imaging Report ---
CHEST X-RAY: AP view INDICATION: Shortness of breath COMPARISON: 11/04/2016 FINDINGS: Support devices remain stable accounting for differences in positioning. Improving and decreased bibasal densities are noted. There may be mild congestive changes. Heart size is normal. IMPRESSION: Improving bibasal densities which may be due to improving infiltrates. Probable mild degree of congestion.
[2016-11-06] MEDS: Cefepime 2 GM in Sodium Chloride 0.9% 100 ML IV SCH ×2 (10:39→23:00)
[2016-11-06] MEDS: D5-0.9%NS 1,000 ML IV SCH (10:41)
[2016-11-06] MEDS: Diltiazem 5 mg/mL 5mL Vial IVP PRN (15:12)
[2016-11-06] MEDS: Insulin Detemir 100 units/mL 10mL Vial SUBQ SCH (21:14)
[2016-11-07] MEDS: D5-0.9%NS 1,000 ML IV SCH (02:12)
[2016-11-07 05:21] LABS: % BASOPHILS 0.1 % (0.0-2.0); % EOSINOPHILS 3.8 % (0.0-5.0); % LYMPHOCYTES 15.4 % (20.0-50.0); % MONOCYTES 11.2 % (2.0-10.0); % NEUTROPHILS 69.5 % (40.0-80.0); HEMATOCRIT 36.7 % (39.0-49.0); HEMOGLOBIN 12.3 gm/dL (12.6-17.4); MEAN CELL VOLUME 90.4 fl (80-99); MEAN CORPUSCULAR HEMOGLOBIN 30.2 pg (27.0-31.0); MEAN CORPUSCULAR HGB CONC 33.5 pg (28.0-36.0); MEAN PLATELET VOLUME 10.6 fl; NEUTROPHILE ABSOLUTE 7.8 Th/cmm (1.8-8.0); PLATELET COUNT 180 Th/cmm (150-400); RED BLOOD COUNT 4.06 Mil/cmm (3.80-5.80); RED CELL DISTRIBUTION WIDTH 13.2 % (11.5-20.0); WHITE BLOOD COUNT 11.1 Th/cmm (4.8-10.8)
[2016-11-07 05:45] LABS: ANION GAP 6.5 (7.0-16.0); BUN - UREA NITROGEN 22 mg/dL (7-25); BUN/CREATININE RATIO 27.5; CALCIUM SERUM 8.3 mg/dL (8.6-10.3); CARBON DIOXIDE 30.8 mEq/L (21.0-31.0); CHLORIDE 114 mEq/L (98-107); CREATININE - SERUM 0.8 mg/dL (0.7-1.3); GLUCOSE 130 mg/dL (70-105); MAGNESIUM 2.1 mg/dL (1.9-2.7); POTASSIUM SERUM 3.3 mEq/L (3.5-5.1); SODIUM SERUM 148 mEq/L (136-145)
[2016-11-07] MEDS: INSULIN ASPART, RECOMBINANT 100 UNITS/ML SUBQ SCH ×4 (06:31→21:53)
[2016-11-07] MEDS: Albuterol/Ipratropium Neb 3 ML AERS HHN SCH ×4 (07:24→19:18)
[2016-11-07] MEDS: Budesonide 0.5 Mg/2 mL Ud HHN SCH ×2 (07:24→19:18)
[2016-11-07] MEDS: Benztropine 1 MG TAB PO SCH (08:53)
[2016-11-07] MEDS: Lactobacillus Rhamnosus 10 Billion CFU Capsule PO SCH (08:53)
[2016-11-07] MEDS: Chlorhexidine Gluconate 0.12% 15mL Mouthwash MM SCH (09:12)
[2016-11-07 09:38] LABS: ABG SOURCE Arterial; ALLEN TEST Positive; BE(B) 8.9 mmol/L (-3.0-3.0); HCO3 34.6 mmol/L (20.0-26.0); pH 7.44 (7.35-7.45)
[2016-11-07 09:39] LABS: FIO2 40; MECH RATE 10; MECH VT 550; PS 15
[2016-11-07] MEDS ORDERED: D5-0.45NS 1,000 ML IV SCH (09:45)
[2016-11-07] MEDS: Cefepime 2 GM in Sodium Chloride 0.9% 100 ML IV SCH ×2 (10:22→23:12)
[2016-11-07] MEDS: KCL 20mEq/100mL Premix 20 MEQ/100 ML PIGGYBACK IV SCH ×2 (11:13→13:07)
[2016-11-07] MEDS: Insulin Detemir 100 units/mL 10mL Vial SUBQ SCH (21:47)
[2016-11-08 06:04] LABS: % BASOPHILS 0.1 % (0.0-2.0); % EOSINOPHILS 3.4 % (0.0-5.0); % LYMPHOCYTES 9.7 % (20.0-50.0); % MONOCYTES 9.1 % (2.0-10.0); % NEUTROPHILS 77.7 % (40.0-80.0); HEMATOCRIT 37.6 % (39.0-49.0); HEMOGLOBIN 12.6 gm/dL (12.6-17.4); MEAN CELL VOLUME 90.2 fl (80-99); MEAN CORPUSCULAR HEMOGLOBIN 30.2 pg (27.0-31.0); MEAN CORPUSCULAR HGB CONC 33.4 pg (28.0-36.0); MEAN PLATELET VOLUME 11.4 fl; NEUTROPHILE ABSOLUTE 9.8 Th/cmm (1.8-8.0); PLATELET COUNT 185 Th/cmm (150-400); RED BLOOD COUNT 4.16 Mil/cmm (3.80-5.80); RED CELL DISTRIBUTION WIDTH 12.7 % (11.5-20.0); WHITE BLOOD COUNT 12.5 Th/cmm (4.8-10.8)
[2016-11-08 06:29] LABS: ANION GAP 5.7 (7.0-16.0); BUN - UREA NITROGEN 16 mg/dL (7-25); BUN/CREATININE RATIO 22.9; CALCIUM SERUM 8.5 mg/dL (8.6-10.3); CARBON DIOXIDE 33.9 mEq/L (21.0-31.0); CHLORIDE 109 mEq/L (98-107); CREATININE - SERUM 0.7 mg/dL (0.7-1.3); GLUCOSE 153 mg/dL (70-105); POTASSIUM SERUM 3.6 mEq/L (3.5-5.1); SODIUM SERUM 145 mEq/L (136-145)
[2016-11-08] MEDS: Albuterol/Ipratropium Neb 3 ML AERS HHN SCH ×3 (07:29→15:02)
[2016-11-08] MEDS: Budesonide 0.5 Mg/2 mL Ud HHN SCH (07:29)
[2016-11-08] MEDS: Chlorhexidine Gluconate 0.12% 15mL Mouthwash MM SCH ×2 (08:00→08:03)
[2016-11-08] MEDS: INSULIN ASPART, RECOMBINANT 100 UNITS/ML SUBQ SCH ×3 (08:01→17:09)
[2016-11-08] MEDS ORDERED: POTASSIUM CHLORIDE IV SCH (09:28)
[2016-11-08] MEDS ORDERED: [UNRECOGNIZED DRUG - OTHER] IV SCH (09:28)
[2016-11-08] MEDS ORDERED: D5 IV SCH (09:28)
[2016-11-08] MEDS ORDERED: D5-0.45NS w/10 mEq KCL 1,000 ML IV SCH (09:30)
[2016-11-08] MEDS: Lactobacillus Rhamnosus 10 Billion CFU Capsule PO SCH (10:27)
[2016-11-08] MEDS: Benztropine 1 MG TAB PO SCH (10:29)
--- NOTE | 2016-11-08 10:30 | Diagnostic Imaging Report ---
CHEST X-RAY: AP view INDICATION: Shortness of breath COMPARISON: 11/06/2016 FINDINGS: ET tube is seen with tip 2 cm above the meredith. NG tube and right PICC line are stable. Increased bibasal densities are noted with chronic changes and suboptimal lung volumes. Borderline prominent heart is noted. IMPRESSION: Increased bibasal densities which may be due to patient's low lung volume and atelectatic changes. Underlying pneumonia is considered less likely but cannot be excluded. ET tube with tip 2 cm above the Meredith.
[2016-11-08] MEDS ORDERED: metroNIDAZOLE 500mg/NS 100mL 500 MG/100 ML BAG IV SCH (12:00)
--- NOTE | 2016-11-09 18:55 | Discharge Summary ---
ADMITTING DIAGNOSES: Respiratory insufficiency, bibasilar atelectasis versus pneumonia, elevated D-dimer, rule out deep venous thrombosis, pulmonary embolus and hypoxia. SECONDARY DIAGNOSES: Include history of chronic obstructive pulmonary disease, history of congestive heart failure, essential hypertension, history of diabetes, history of cardiac arrhythmia, history of unknown psych disorder, possible schizophrenia. DISCHARGE DIAGNOSES: 1. Respiratory failure, recurrent intubation. 2. Bibasilar pneumonia. 3. Sepsis shock. 4. Leukocytosis. 5. Hypoxia. CONSULTANTS: Dr. Gomez, Pulmonary and Dr. Wilson, Cardiology. MAJOR PROCEDURES: There was a V/Q scan showing a very low probability for a PE. A 2D echo shows hypertrophy of the left ventricle with an EF of 55%, Doppler study showed mild mitral regurgitation, tricuspid regurgitation and aortic regurgitation. BRIEF HOSPITAL COURSE: A 76-year-old male who presented from [facility] with lethargy, weakness and shortness of breath. He was admitted to telemetry where he was placed on IV antibiotics, pulmonary supportive care and given his hypoxia and elevated D-dimer, patient underwent the above-mentioned procedures. Approximately a day or two after admission, the patient's respiratory status declined and therefore he was transferred to the ICU and was eventually intubated. The patient has tolerated weaning up to IMV rate and appears to be stable respiratory peraza. He developed SVT and AFib with RVR, also while at the ICU requiring Cardizem drip, which has been lower, but not discontinued. The patient has remained on broad spectrum antibiotics and pulmonary supportive care and as mentioned above, has remained overall stable while in the ICU. MEDICATIONS: Transfer/discharge DuoNeb q.4h. while awake and p.r.n. Amiodarone 200 mg every day, Cogentin 1 mg every day, Pulmicort 0.5 b.i.d. Diltiazem drip per protocol, D5 half at 75, Cardizem 2 mg IV push q.4h. for heart rate greater than 110, Aricept 5 at bedtime, insulin detemir 28 subcutaneous at bedtime, lorazepam 1 mg q.2h. p.r.n., morphine 1 mg q.4h. p.r.n. for pain, Zyprexa 5 mg b.i.d., Protonix 40 mg IV every day, valproic acid 500 mg at bedtime and 250 every day and clonidine 0.1 q. 8 p.r.n. for SBP greater than 160, Flagyl 500 mg IV q.6h. and cefepime 1 gram q.6h. CONDITION ON DISCHARGE: Stable. DISPOSITION: The patient was transferred to [facility] ICU. [facility] [id number] [facility]
== END 2016-11-08 19:06 | DRG 870 ==
LOC: ER 14:24 → EDBD 14:24 → TELE 16:28 → ICU 11-01 21:30
PROVIDERS: ADMIT Internal Medicine; ATTEND Internal Medicine
PROC: 5A1955Z Respiratory Ventilation, Greater than 96 Consecutive Hours (ICD-10-PCS; principal; 2016-11-01)
PROC: 0BH17EZ Insertion of Endotracheal Airway into Trachea, Via Natural or Artificial Opening (ICD-10-PCS; 2016-11-01)
PROC: 02HV33Z Insertion of Infusion Device into Superior Vena Cava, Percutaneous Approach (ICD-10-PCS; 2016-11-01)
DX: A41.9 Sepsis, unspecified organism (principal); I21.4 Non-ST elevation (NSTEMI) myocardial infarction; J18.9 Pneumonia, unspecified organism; R65.21 Severe sepsis with septic shock; J96.01 Acute respiratory failure with hypoxia; J96.02 Acute respiratory failure with hypercapnia; I13.0 Hypertensive heart and chronic kidney disease with heart failure and stage 1 through stage 4 chronic kidney disease, or unspecified chronic kidney disease; F03.90 Unspecified dementia, unspecified severity, without behavioral disturbance, psychotic disturbance, mood disturbance, and anxiety; I50.30 Unspecified diastolic (congestive) heart failure; E11.22 Type 2 diabetes mellitus with diabetic chronic kidney disease; I47.1 Supraventricular tachycardia; I48.91 Unspecified atrial fibrillation; Q61.3 Polycystic kidney, unspecified; F29 Unspecified psychosis not due to a substance or known physiological condition; I25.10 Atherosclerotic heart disease of native coronary artery without angina pectoris; F20.9 Schizophrenia, unspecified; E87.6 Hypokalemia; N18.3 Chronic kidney disease, stage 3 (moderate); Z87.891 Personal history of nicotine dependence
CPT/HCPCS: 36415-UA; 36600-90; 71010-TC; 80048-TC; 80053-TC; 80061-TC; 81001-TC; 82803-TC; 82948-90; 83036-90; 83605; 83735-TC; 83880-TC; 84100-TC; 84443-TC; 84484-TC; 85007-TC; 85025-TC; 85027-TC; 85379-TC; 85610-TC; 87070; 90779; 90782; 90799; 93005; 94002; 94003; 94640; 94760; 96379; A9540; A9567; C1751; C9113; J0456; J0515; J0692; J0696; J1644; J1815; J1956; J2060; J2270; J2704; J3480; J7030; J7042; J7051; J7070; Q9967; X6452; Z7610